=== PATIENT | female | born 1960 | race Caucasian/White ===

== ENCOUNTER 2017-04-23 10:28 | Emergency (ER) | payer OTHER ==
[~2017-04-23] VITALS: Ht 160 cm; Wt 68.2 kg
[2017-04-23] MEDS ORDERED: HYDR-3112 PO (10:40)
[2017-04-23] MEDS ORDERED: KETO5DRO6 OP (10:40)
[2017-04-23] MEDS ORDERED: ATOR20TA86 PO (10:40)
[2017-04-23] MEDS ORDERED: LISI-660 PO (10:40)
[2017-04-23] MEDS ORDERED: RANI150T7 PO (10:40)
[2017-04-23] MEDS ORDERED: FLUT16H NASAL (10:40)
[2017-04-23] MEDS ORDERED: GABA-531 PO (10:40)
[2017-04-23] MEDS ORDERED: ALBU8.5H8 IH (10:40)
[2017-04-23] MEDS ORDERED: METF500T4 PO (10:40)
[2017-04-23] MEDS ORDERED: BUPR100 PO (10:40)
[2017-04-23] MEDS ORDERED: VENL50TA44 PO (10:40)
[2017-04-23 10:42] LABS: GLUCOSE,POINT OF CARE 97 MG/DL (70-110)
[2017-04-23] MEDS ORDERED: DiphenhydrAMINE HCL 50 MG/ML VIAL IVP ONE ×2 (12:45→19:00)
[2017-04-23] MEDS ORDERED: MethylPREDNISolone SOD SUCC 125 MG/2 ML VIAL IVP ONE (12:45)
[2017-04-23] MEDS ORDERED: FAMOTIDINE 10 MG/ML 2 ML VIAL IVP ONE (12:45)
[2017-04-23 19:46] VITALS: BP 114/78
== END 2017-04-23 19:59 | disposition home or self-care (01) ==
LOC: EMS 10:30
DX: T63.441A Toxic effect of venom of bees, accidental (unintentional), initial encounter (principal); E11.9 Type 2 diabetes mellitus without complications; K21.9 Gastro-esophageal reflux disease without esophagitis; E78.00 Pure hypercholesterolemia, unspecified; I10 Essential (primary) hypertension; G43.909 Migraine, unspecified, not intractable, without status migrainosus; Z88.1 Allergy status to other antibiotic agents; Y92.89 Other specified places as the place of occurrence of the external cause
CPT/HCPCS: 82962; 96374; 96375; 96376; 99284; J1200; J2930; J3490

== ENCOUNTER 2017-09-09 10:26 | Emergency (ER) | payer OTHER ==
[~2017-09-09] VITALS: Ht 162.6 cm; Wt 63.6 kg
[~2017-09-09 10:26] MED LIST: ALBU8.5H8 IH; ATOR20TA86 PO; BUPR100 PO; FLUT16H NASAL; GABA-531 PO; HYDR-3112 PO; KETO5DRO6 OP; LISI-660 PO; METF500T6 PO; RANI150T7 PO; VENL50TA44 PO
[2017-09-09] MEDS ORDERED: SODIUM CHLORIDE 0.9% 1,000 ML IV ONE ×2 (10:33→12:45)
[2017-09-09 10:44] LABS: GLUCOSE,POINT OF CARE 145 MG/DL (70-110)
[2017-09-09] MEDS ORDERED: MethylPREDNISolone SOD SUCC 125 MG/2 ML VIAL IVP ONE (10:45)
[2017-09-09] MEDS ORDERED: FAMOTIDINE 10 MG/ML 2 ML VIAL IVP ONE (10:45)
[2017-09-09] MEDS ORDERED: DiphenhydrAMINE HCL 50 MG/ML VIAL IVP ONE (10:45)
[2017-09-09 13:59] VITALS: BP 124/74
== END 2017-09-09 14:16 | disposition home or self-care (01) ==
LOC: EMS 10:27
DX: T63.441A Toxic effect of venom of bees, accidental (unintentional), initial encounter (principal); M79.89 Other specified soft tissue disorders; K21.9 Gastro-esophageal reflux disease without esophagitis; E11.9 Type 2 diabetes mellitus without complications; E78.00 Pure hypercholesterolemia, unspecified; I10 Essential (primary) hypertension; G43.909 Migraine, unspecified, not intractable, without status migrainosus; Z88.1 Allergy status to other antibiotic agents; Z91.030 Bee allergy status
CPT/HCPCS: 82962; 93005; 96374; 96375; 99291; J1200; J2930; J3490; J7030

== ENCOUNTER 2018-12-06 12:57 | Emergency (ER) | payer OTHER ==
[~2018-12-06] VITALS: Ht 160 cm; Wt 69.0 kg
[~2018-12-06 12:57] MED LIST changes: -HYDR-3112 PO; +HYDR25TA82 PO; +METF-960 PO; -METF500T6 PO
[2018-12-06 13:25] LABS: GLUCOSE,POINT OF CARE 103 MG/DL (70-110)
[2018-12-06 17:36] VITALS: BP 124/74
[2018-12-06] MEDS: IBUPROFEN 600 MG TABLET PO ONE (18:33)
== END 2018-12-06 18:34 | disposition home or self-care (01) ==
LOC: EMS 13:00
DX: S93.401A Sprain of unspecified ligament of right ankle, initial encounter (principal); S00.83XA Contusion of other part of head, initial encounter; R03.0 Elevated blood-pressure reading, without diagnosis of hypertension; F41.9 Anxiety disorder, unspecified; F32.9 Major depressive disorder, single episode, unspecified; E11.9 Type 2 diabetes mellitus without complications; K21.9 Gastro-esophageal reflux disease without esophagitis; E78.00 Pure hypercholesterolemia, unspecified; I10 Essential (primary) hypertension; G40.909 Epilepsy, unspecified, not intractable, without status epilepticus; Z79.84 Long term (current) use of oral hypoglycemic drugs; Z79.899 Other long term (current) drug therapy; Z88.1 Allergy status to other antibiotic agents; W01.0XXA Fall on same level from slipping, tripping and stumbling without subsequent striking against object, initial encounter; Y93.89 Activity, other specified; Y92.89 Other specified places as the place of occurrence of the external cause; Y99.8 Other external cause status
CPT/HCPCS: 70486